=== PATIENT | male | born 1965 | race African-American/Black ===

== ENCOUNTER → 2020-06-23 | Outpatient (CLI) | payer OTHER | LOC: COL.VAS 12:52 | DX: R01.1 Cardiac murmur, unspecified (principal) ==

== ENCOUNTER 2020-09-07 08:39 | Inpatient (IN) | payer OTHER ==
[~2020-09-07] VITALS: Ht 180.3 cm; Wt 142.9 kg
[2020-10-06] VITALS (11 sets, daily range): BP systolic 117–142; BP diastolic 56–85; PULSE 65–99; TEMP 97.5–99
[2020-10-06] MEDS ORDERED: HCTZ12.5TAB PO (05:55)
[2020-10-06 06:13] LABS: BASO % 0.8 % (0.0-2.0); EOS # 0.3 (0.0-0.7); EOS % 5.1 % (0-4.0); GRAN # 2.6 (1.4-6.5); HEMATOCRIT 46.1 % (42.0-52.0); HEMOGLOBIN 15.2 g/dl (13.5-18.0); LYMPH # 1.8 (1.2-3.4); LYMPH % 33.7 % (20.0-51.0); MEAN CELL VOLUME 86 fl (80.0-100.0); MEAN CORPUSCULAR HEMOGLOBIN 28 pg (27.0-31.0); MEAN CORPUSCULAR HGB CONC 33 g/dl (33.0-37.0); MONO # 0.6 (0.1-0.6); PLATELET COUNT 289 K/mm3 (130-400); RED BLOOD COUNT 5.39 M/mm3 (4.20-5.60); REDCELL DISTRIBUTION WIDTH-CV 14.7 % (11.5-14.5)
[2020-10-06 06:23] LABS: ALBUMIN 4.4 gm/dL (3.5-5.0); CALCIUM 8.9 mg/dL (8.4-10.2); CREATININE, serum 0.88 (0.66-1.25); TOTAL PROTEIN 8.6 gm/dL (6.4-8.2)
--- NOTE | 2020-10-06 06:29 | NUR ---
The patient ambulated back to [place] 8 independently using a steady gait and appeared to tolerate the activity well. Vital signs obtained. Consent signed. 20G IV started on fourth attempt, LR infusing without difficulty. Assessment completed. brought back to be at his bedside. Call light is within reach. Blood drawn from IV start for labs as ordered. Will continue to monitor the patient.
--- NOTE | 2020-10-06 07:01 | NUR ---
The patient was taken to the operating room via cart at this time. The patient's chart was sent him to surgery. The patient's took his belongings with her to the waiting room.
--- NOTE | 2020-10-06 11:45 | NUR ---
Pt received from PACU. He is alert and oriented although drowsy from anesthesia. He had complaints feeling as if he needed to have a bowel movement. Used 2 assist to get him to the restroom. Pt did feel nauseated and dry heaved some, but then reported feeling better. Assisted him back to the bed. Pt reports that he feels as if he needs to urinate. Informed him that he does have that catheter and that he can just try to relax and urine would drain in the hager. No pain complaints. Incisions are all well approximated with no drainage, LEON to bulb suction. SCDs on bilaterally. Oriented pt to his room
--- NOTE | 2020-10-06 12:51 | NUR ---
First visit from the latex dipper. No needs right now.
--- NOTE | 2020-10-06 13:39 | NUR ---
Pt reports feeling better, pain is minimal, on the phone at this time. is present in the room, will continue to monitor
--- NOTE | 2020-10-06 14:49 | NUR ---
Pe Electrical Engineer met with the patient and the patient's , Ayala to complete intake. The patient lives in [place] with Ayala. The patient receives medical care and medications from [facility]. The patient does not have advanced directives in the EMR but states they are complete. Ayala states she will bring in a copy. The plan is to return home at discharge with no concerns about doing so. *Discharge disposition* Home with Ayala
--- NOTE | 2020-10-06 16:53 | NUR ---
Pt continues to do well. He has tolerated clear liquids and some applesauce. Have encouraged him to chew gum which he is at this time. Minimal pain to his right groin. Pt's remains present in the room. Educated him on eating small meals and starting with something light. Output is clear pale yellow.
--- NOTE | 2020-10-06 23:21 | NUR ---
ASSESSMENT DONE. ALERT AND OX 4. STATES NO PAIN, DENIES SOA, CHEST PAIN OR DIZZY. IS PASSING SOME GAS, NO BM YET. PM MEDS GIVEN. IV FLUIDS RUNNING PER ORDER. SCD ON. SETTING UP IN CHAIR. LEON TO LEFT LOWER ABD. 5 LAPS, GLUED DATA CENTER TECHNICIAN. POC DISCUSSED. NEEDS MET.
[2020-10-07 04:47] VITALS: BP 133/68; PULSE 68; TEMP 98
--- NOTE | 2020-10-07 05:55 | NUR ---
RESTED IN THE RECLINER WITHOUT INCIDENT. IS PASSING GAS. URINE LIGHT RED/PINK TO CUNHA CATH. DENIES PAIN OR DISCOMFORT. NEEDS MET
[2020-10-07 07:13] LABS: HEMATOCRIT 40.7 % (42.0-52.0); HEMOGLOBIN 13.4 g/dl (13.5-18.0)
[2020-10-07 07:34] LABS: CALCIUM 8.5 mg/dL (8.4-10.2); CREATININE, serum 1.08 (0.66-1.25); POTASSIUM 3.8 mmol/L (3.4-5.0)
[2020-10-07 08:00] VITALS: BP 113/64; PULSE 67; TEMP 98
--- NOTE | 2020-10-07 10:00 | NUR ---
Patient alert and oriented, answers questions appropriately. See assessment. Abdomen soft, obese, non tender. Lap sites x4 with edges well approximated, no redness or drainage noted. Umbilical incision with dehiscence noted, scant amount of drainage noted. LEON to LLQ with bulb to compression, scant amount of serosanguinous drainage noted. +Flatus, no bowel movement. Girard catheter in place to dependent drainage, patent, draining clear kacie urine. Dr Rice aware of wound dehiscence. ERAS protocol reviewed with patient. No c/o at this time.
[2020-10-07 12:00] VITALS: BP 123/61; PULSE 77; TEMP 97.7
--- NOTE | 2020-10-07 13:10 | NUR ---
LEON drain removed per drs order.
--- NOTE | 2020-10-07 13:30 | NUR ---
Discharge instructions reviewed with patient and spouse, verbalized understanding. At home hager catheter care demonstrated, patient and verbalized understanding. Discharged at [address]30 with [address] catheter in place, via wheelchair to auto/home with spouse.
== END 2020-10-07 13:30 | disposition home or self-care (01) | DRG 707 ==
LOC: INPTSU 10-06 05:36 → SURG 10-06 05:36
PROVIDERS: ADMIT Urology
PROC: 07TC4ZZ Resection of Pelvis Lymphatic, Percutaneous Endoscopic Approach (ICD-10-PCS; 2020-10-06)
PROC: 8E0W4CZ Robotic Assisted Procedure of Trunk Region, Percutaneous Endoscopic Approach (ICD-10-PCS; 2020-10-06)
PROC: 0VT04ZZ Resection of Prostate, Percutaneous Endoscopic Approach (ICD-10-PCS; principal; 2020-10-06 07:30)
DX: C61 Malignant neoplasm of prostate (principal); T81.31XA Disruption of external operation (surgical) wound, not elsewhere classified, initial encounter; E78.00 Pure hypercholesterolemia, unspecified; I10 Essential (primary) hypertension; Z88.6 Allergy status to analgesic agent; Z88.0 Allergy status to penicillin
CPT/HCPCS: A4314; A9284; J0330; J0690; J1100; J1885; J1956; J2405; J2550; J2704; J3010; J7120